=== PATIENT | male | born 1990 | race Caucasian/White ===

== ENCOUNTER 2016-11-02 13:32 | Emergency (ER) | payer BC, MEDICAID, OTHER ==
[~2016-11-02] VITALS: Ht 180.3 cm; Wt 73.0 kg
[~2016-11-02 13:32] MED LIST: Z.0.NO CURRENT MEDS
[2016-11-02 13:34] VITALS: BP 138/82; PULSE 77; RESP 16; TEMP 98.2; O2SAT 98
[2016-11-02] MEDS ORDERED: LORA-392 PO (13:54)
[2016-11-02] MEDS ORDERED: SUCR1TAB PO (13:55)
--- NOTE | 2016-11-02 14:05 | PD ---
HPI Chief Complaint: Chest Pain Time Seen by Provider: 14:05 Travel History International Travel<30 days: No Contact w/Intl Traveler<30days: No Traveled to known affect area: No History of Present Illness HPI 25 year old male presents to the ED for evaluation of left-sided chest pain. Described as a sharp tightness. Associated with shortness of breath. Onset and duration of the pain is variable. Patient denies radiation of the pain, diaphoresis, nausea or vomiting. He states that he has had similar episodes of this pain for the last "5 or 6 months." Also complains of a constellation of symptoms including headache, photophobia, dizziness, abdominal pain, nausea, weight loss, fatigue over the same period of time. He has been evaluated by his primary care provider in [place], as well as a neurologist and a waste chopper. They plan for upper endoscopy upon his return to [place]. Mom is at bedside and states that the patient's younger brother of a intracranial AVM at age 14 and this is caused heightened worry for the health of her son. Patient states he was discharged from the around the time of onset of symptoms and is currently attending college. He endorses good health throughout his lifetime. He is physically active daily. He has never smoked. Denies alcohol or illicit drug use. PFSH Past Medical History Anxiety: Yes Cancer: No Diabetes: No Diminished Hearing: No Hepatitis: No Hiatal Hernia: No Immunizations Current: No Thyroid Disease: No Tetanus Vaccination: < 5 Years Influenza Vaccination: Yes ?: Not Past Surgical History Abdominal Surgery: No Cardiac Surgery: No Ear Surgery: No Endocrine Surgery: No Eye Surgery: No Genitourinary Surgery: Yes (PROCEDURE FOR ? KIDNEY STONES MAY 2010) Oral Surgery: No Pacemaker: No Thoracic Surgery: No Other Surgery: Yes Social History Alcohol Use: Yes (OCC ) Tobacco Use: No (QUIT ) Substance Use: No (HX MARIJUANA ) Allergies-Medications (Allergen,Severity, Reaction): Coded Allergies: No Known Allergies (Unverified , 11/02/16) Reported Meds & Prescriptions Reported Meds & Active Scripts Active Omeprazole 20 Mg Tab 20 Mg PO DAILY Reported Sucralfate 1 Gm Tab 1 Gm PO QID on empty stomach Ativan (Lorazepam) 0.5 Mg Tab 0.5 Mg PO DAILY PRN Review of Systems Except as stated in HPI: all other systems reviewed are Neg Physical Exam Narrative GENERAL: Well-nourished, well-developed athletic nontoxic-appearing white male in no acute distress. SKIN: Focused skin assessment warm/dry. Multiple tattoos. HEAD: Normocephalic. Atraumatic. EYES: No scleral icterus. No injection or drainage. PERRLA. EOMI. ENT: Pearly thornton tympanic membranes. Oropharynx without erythema, edema or exudates. NECK: Supple, trachea midline. No JVD or lymphadenopathy. No meningeal signs. CARDIOVASCULAR: Regular rate and rhythm without murmurs, gallops, or rubs. 2+ DP and radial pulses bilaterally. CHEST: Nontender throughout without deformity or crepitus. No retractions or use of accessory muscles. RESPIRATORY: Breath sounds clear and equal bilaterally. No accessory muscle use. GASTROINTESTINAL: Abdomen soft, non-tender, nondistended.No hepatosplenomegaly. Active bowel sounds. MUSCULOSKELETAL: No cyanosis, or edema. 5/5 strength in the extremities. Patient has a laboratory, demonstrates a normal gait. BACK: Nontender without obvious deformity. No midline or CVA tenderness. Data Data Last Documented VS Vital Signs Date Time Temp Pulse Resp B/P Pulse Ox O2 Delivery O2 Flow Rate FiO2 11/02/16 16:32 130/64 97 11/02/16 15:53 98.5 Nasal Cannula 2 11/02/16 13:34 77 16 Orders Electrocardiogram (11/02/16 14:33) Ckmb (Isoenzyme) Profile (11/02/16 14:33) Complete Blood Count With Diff (11/02/16 14:33) Comprehensive Metabolic Panel (11/02/16 14:33) Magnesium (Mg) (11/02/16 14:33) Prothrombin Time / Inr (Pt) (11/02/16 14:33) Act Partial Throm Time (Ptt) (11/02/16 14:33) Troponin I (11/02/16 14:33) Chest, Single Ap (11/02/16 14:33) Ecg Monitoring (11/02/16 14:33) Bilateral Bp Monitoring (11/02/16 14:33) Iv Access Insert/Monitor (11/02/16 14:33) Oximetry (11/02/16 14:33) Sodium Chloride 0.9% Flush (Ns Flush) (11/02/16 14:45) CKMB (11/02/16 12:41) CKMB% (11/02/16 12:41) Labs Laboratory Tests Test 11/02/16 12:41 White Blood Count 5.1 TH/MM3 Red Blood Count 5.34 MIL/MM3 Hemoglobin 15.7 GM/DL Hematocrit 45.4 % Mean Corpuscular Volume 85.1 FL Mean Corpuscular Hemoglobin 29.4 PG Mean Corpuscular Hemoglobin 34.5 % Concent Red Cell Distribution Width 12.6 % Platelet Count 224 TH/MM3 Mean Platelet Volume 8.4 FL Neutrophils (%) (Auto) 50.3 % Lymphocytes (%) (Auto) 37.1 % Monocytes (%) (Auto) 10.3 % Eosinophils (%) (Auto) 1.9 % Basophils (%) (Auto) 0.4 % Neutrophils # (Auto) 2.6 TH/MM3 Lymphocytes # (Auto) 1.9 TH/MM3 Monocytes # (Auto) 0.5 TH/MM3 Eosinophils # (Auto) 0.1 TH/MM3 Basophils # (Auto) 0.0 TH/MM3 CBC Comment DIFF FINAL Differential Comment Prothrombin Time 10.8 SEC Prothromb Time International 1.0 RATIO Ratio Activated Partial 27.6 SEC Thromboplast Time Sodium Level 142 MEQ/L Potassium Level 3.7 MEQ/L Chloride Level 103 MEQ/L Carbon Dioxide Level 30.3 MEQ/L Anion Gap 9 MEQ/L Blood Urea Nitrogen 12 MG/DL Creatinine 0.96 MG/DL Estimat Glomerular Filtration 97 ML/MIN Rate Random Glucose 86 MG/DL Calcium Level 9.8 MG/DL Magnesium Level 2.4 MG/DL Total Bilirubin 0.6 MG/DL Aspartate Amino Transf 17 U/L (AST/SGOT) Alanine Aminotransferase 17 U/L (ALT/SGPT) Alkaline Phosphatase 58 U/L Total Creatine Kinase 111 U/L Creatine Kinase MB LESS THAN 0.5 NG/ML Troponin I LESS THAN 0.02 NG/ML Total Protein 7.6 GM/DL Albumin 4.4 GM/DL [facility] Medical Decision Making Medical Screen Exam Complete: Yes Emergency Medical Condition: Yes Differential Diagnosis musculoskeletal pain versus costochondritis versus chest pain versus psychogenic pain versus less likely ACS versus other Narrative Course 25 year old male presents to the ED for evaluation of left-sided chest pain. Described as a sharp tightness. Associated with shortness of breath. Onset and duration of the pain is variable. Patient denies radiation of the pain, diaphoresis, nausea or vomiting. He states that he has had similar episodes of this pain for the last "5 or 6 months." Also complains of a constellation of symptoms including headache, photophobia, dizziness, abdominal pain, nausea, weight loss, fatigue over the same period of time. He has been evaluated by his primary care provider in [place], as well as a neurologist and a waste chopper. They plan for upper endoscopy upon his return to [place]. He endorses good health throughout his lifetime. He is physically active daily. He has never smoked. Denies alcohol or illicit drug use. Vitals reviewed. Physical exam reveals an athletic white male in no acute distress. Chest is clear to auscultation bilaterally. No reproducible pain over the precordium. EKG rate 67, sinus rhythm. MS interval 136, QRS 98, QTC 394. Normal axis. No acute ST changes. Reviewed by Dr. Delgado. No acute cardiopulmonary process noted on CXR. Cardiac enzymes negative 1. CBC, CMP, coags all within normal limits. The patient's mother is at bedside and very anxious about the health of the patient since she lost her 14-year-old son suddenly due to an AVM. She is requesting multiple inappropriate tests including MRI of the chest. I doubt cardiac origin of this patient's chest pain. Patient is established with a primary care provider and has appropriate outpatient follow-up. He was referred to the [facility] while visiting in [place]. He is stable and discharged home. Diagnosis Primary Impression: Chronic chest pain Referrals: [facility] Patient Instructions: Chest Pain (ED), General Instructions Additional Instructions: Rest, hydrate. Avoid known stressors. Trial of omeprazole for 1 month for intermittent abdominal pain and nausea. Follow-up with the [place] clinic as discussed. Return to the ED for any urgent or emergent medical condition. Med/Other Pt SpecificInfo: Prescription(s) given Scripts Omeprazole 20 Mg Tab20 Mg PO DAILY #30 TAB Ref 0 Prov:Eugenie Delgado MD 11/02/16 Disposition: 01 DISCHARGE HOME Condition: Stable Vivian Lerma November 02, 2016 14:05
[2016-11-02] MEDS ORDERED: SODIUM CHLORIDE 0.9% FLUSH 10 ML FLUSH IVF PRN (14:45)
[2016-11-02 14:49] LABS: AUTOMATED NEUTROPHIL # 2.6 TH/MM3 (1.8-7.7); BASOPHIL % 0.4 % (0.0-2.0); EOSINOPHIL # 0.1 TH/MM3 (0-0.4); EOSINOPHIL % 1.9 % (0.0-4.0); HEMATOCRIT 45.4 % (39.0-51.0); HEMO FLAGS DIFF FINAL; LYMPH % 37.1 % (9.0-44.0); LYMPHOCYTE # 1.9 TH/MM3 (1.0-4.8); MEAN CELL VOLUME 85.1 FL (80.0-100.0); MEAN CORPUSCULAR HEMOGLOBIN 29.4 PG (27.0-34.0); MEAN CORPUSCULAR HGB CONC 34.5 % (32.0-36.0); MONO % 10.3 % (0.0-8.0); NEUT % 50.3 % (16.0-70.0); PLATELET COUNT 224 TH/MM3 (150-450); RED BLOOD COUNT 5.34 MIL/MM3 (4.50-5.90); RED CELL DISTRIBUTION WIDTH 12.6 % (11.6-17.2); WHITE BLOOD COUNT 5.1 TH/MM3 (4.0-11.0)
--- NOTE | 2016-11-02 14:50 | RADRPT ---
EXAM DATE/TIME: 11/02/2016 14:43 [facility] COMPARISON: No previous studies available for comparison. INDICATIONS : Chest pain. MEDICAL HISTORY : None. SURGICAL HISTORY : None. ENCOUNTER: Initial ACUITY: 1 day PAIN SCORE: 0/10 LOCATION: Bilateral chest FINDINGS: Portable AP view of the chest demonstrates a normal-sized cardiac silhouette. No effusion, consolidat ion, or pneumothorax is visualized. The bones and soft tissues demonstrate no acute abnormality. CONCLUSION: No acute cardiopulmonary abnormality is identified. Charly Edward MD on November 02, 2016 at 14:48 Board Certified Radiologist. This report was verified electronically.
[2016-11-02 15:10] LABS: APTT (PATIENT) 27.6 SEC (24.3-30.1); PROTHROMBIN TIME - PATIENT 10.8 SEC (9.8-11.6)
[2016-11-02 15:19] LABS: ALT (GPT) 17 U/L (12-78); ANION GAP 9 MEQ/L (5-15); AST (GOT) 17 U/L (15-37); BICARBONATE 30.3 MEQ/L (21.0-32.0); BLOOD UREA NITROGEN 12 MG/DL (7-18); CHLORIDE 103 MEQ/L (98-107); GLOMERULAR FILTRATION RATE 97 ML/MIN (>89); MAGNESIUM 2.4 MG/DL (1.5-2.5); POTASSIUM 3.7 MEQ/L (3.5-5.1); SODIUM (NA) 142 MEQ/L (136-145)
[2016-11-02 15:23] LABS: ALKALINE PHOSPHATASE 58 U/L (45-117); CREATINE KINASE 111 U/L (39-308); TOTAL BILIRUBIN ADULT 0.6 MG/DL (0.2-1.0)
[2016-11-02 15:35] LABS: CKMB LESS THAN 0.5 NG/ML (0.5-3.6)
[2016-11-02] MEDS ORDERED: OMEP20TA PO (15:49)
[2016-11-02 15:53] VITALS: BP 137/68; TEMP 98.5; O2SAT 100
[2016-11-02 16:32] VITALS: BP 130/64
--- NOTE | 2016-11-02 17:07 | EKG ---
Date Performed: 11/02/2016 Time Performed: 13:47:49 PTAGE: 25 years EKG: Sinus rhythm NONSPECIFIC T-WAVE ABNORMALITY BORDERLINE ECG NO PREVIOUS TRACING DOCTOR: Denis Mckinley Interpretating Date/Time 11/02/2016 17:06:04
--- NOTE | 2016-11-02 17:27 | PD ---
Data Data Last Documented VS Vital Signs Date Time Temp Pulse Resp B/P Pulse Ox O2 Delivery O2 Flow Rate FiO2 11/02/16 16:32 130/64 97 11/02/16 15:53 98.5 Nasal Cannula 2 11/02/16 13:34 77 16 Orders Electrocardiogram (11/02/16 14:33) Ckmb (Isoenzyme) Profile (11/02/16 14:33) Complete Blood Count With Diff (11/02/16 14:33) Comprehensive Metabolic Panel (11/02/16 14:33) Magnesium (Mg) (11/02/16 14:33) Prothrombin Time / Inr (Pt) (11/02/16 14:33) Act Partial Throm Time (Ptt) (11/02/16 14:33) Troponin I (11/02/16 14:33) Chest, Single Ap (11/02/16 14:33) Ecg Monitoring (11/02/16 14:33) Bilateral Bp Monitoring (11/02/16 14:33) Iv Access Insert/Monitor (11/02/16 14:33) Oximetry (11/02/16 14:33) Sodium Chloride 0.9% Flush (Ns Flush) (11/02/16 14:45) CKMB (11/02/16 12:41) CKMB% (11/02/16 12:41) Labs Laboratory Tests Test 11/02/16 12:41 White Blood Count 5.1 TH/MM3 Red Blood Count 5.34 MIL/MM3 Hemoglobin 15.7 GM/DL Hematocrit 45.4 % Mean Corpuscular Volume 85.1 FL Mean Corpuscular Hemoglobin 29.4 PG Mean Corpuscular Hemoglobin 34.5 % Concent Red Cell Distribution Width 12.6 % Platelet Count 224 TH/MM3 Mean Platelet Volume 8.4 FL Neutrophils (%) (Auto) 50.3 % Lymphocytes (%) (Auto) 37.1 % Monocytes (%) (Auto) 10.3 % Eosinophils (%) (Auto) 1.9 % Basophils (%) (Auto) 0.4 % Neutrophils # (Auto) 2.6 TH/MM3 Lymphocytes # (Auto) 1.9 TH/MM3 Monocytes # (Auto) 0.5 TH/MM3 Eosinophils # (Auto) 0.1 TH/MM3 Basophils # (Auto) 0.0 TH/MM3 CBC Comment DIFF FINAL Differential Comment Prothrombin Time 10.8 SEC Prothromb Time International 1.0 RATIO Ratio Activated Partial 27.6 SEC Thromboplast Time Sodium Level 142 MEQ/L Potassium Level 3.7 MEQ/L Chloride Level 103 MEQ/L Carbon Dioxide Level 30.3 MEQ/L Anion Gap 9 MEQ/L Blood Urea Nitrogen 12 MG/DL Creatinine 0.96 MG/DL Estimat Glomerular Filtration 97 ML/MIN Rate Random Glucose 86 MG/DL Calcium Level 9.8 MG/DL Magnesium Level 2.4 MG/DL Total Bilirubin 0.6 MG/DL Aspartate Amino Transf 17 U/L (AST/SGOT) Alanine Aminotransferase 17 U/L (ALT/SGPT) Alkaline Phosphatase 58 U/L Total Creatine Kinase 111 U/L Creatine Kinase MB LESS THAN 0.5 NG/ML Troponin I LESS THAN 0.02 NG/ML Total Protein 7.6 GM/DL Albumin 4.4 GM/DL MDM Supervised Visit with LUCILA: Yes Narrative Course The history, exam, and medical decision-making in the associated midlevel provider note were completed with my assistance. I reviewed and agree with the findings presented. I attest that I had a [id number] encounter with the patient on the same day, and personally performed and documented my assessment and findings in the medical record. *My assessment and Findings: This is a 25 year old male who has multiple medical complaints including chest pain that has been going on for 5 months. He is scheduled for an endoscopy with a office coordinator in [place]. He reports that he had some constant chest pain since last evening after doing pushups. I suspect he has costochondritis. Labs were obtained which were all reassuring. Mom is very anxious. She talked at length about her own personal history of posttraumatic stress disorder having found her 14-year-old son from an AV malformation. I suspect there are some psychiatric undertones to this patient's visit. I don't think this reflects a medical emergency. Patient can be safely discharged home and can follow-up with his primary care physician and was given a referral to [facility]. Diagnosis Primary Impression: Chronic chest pain Referrals: [facility] 1 week Patient Instructions: General Instructions, Chest Pain (ED) Departure Forms: Tests/Procedures Additional Instruction: Rest, hydrate. Avoid known stressors. Trial of omeprazole for 1 month for intermittent abdominal pain and nausea. Follow-up with the [facility] as discussed. Return to the ED for any urgent or emergent medical condition. Scripts Omeprazole 20 Mg Tab20 Mg PO DAILY #30 TAB Ref 0 Prov:Eugenie Delgado MD 11/02/16 Disposition: 01 DISCHARGE HOME Condition: Good Eugenie Delgado MD November 02, 2016 17:27
== END 2016-11-02 16:34 | disposition home or self-care (01) ==
LOC: NEPC 13:32
DX: R07.9 Chest pain, unspecified (principal); R06.02 Shortness of breath; R11.0 Nausea
CPT/HCPCS: 71010; 80053; 82550; 82552; 83735; 84484; 85025; 85610; 85730; 93005; 99284